=== PATIENT | female | born 2005 | race Caucasian/White ===

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

== ENCOUNTER 2025-02-11 07:06 | Emergency (ER) | payer OTHER ==
[2025-02-11 07:15] VITALS: TEMP 98.1
--- NOTE | 2025-02-11 08:10 | ED ---
General Adult HPI - General Source: patient, family, RN notes reviewed, old records reviewed Mode of arrival: ambulatory Limitations: no limitations <Mickey Steward - Last Filed: 02/11/25 10:53> <Craig Aguilar - Last Filed: 02/11/25 15:48> - General Chief complaint: Headache Stated complaint: Headache Time Seen by Provider: 02/11/25 07:07 - History of Present Illness Initial comments: 19-year-old female presenting with complaints of headache for the past week. Reports 1 week ago she had a headache that she describes as the worst headache of her life, 10 out of 10 pain and states the pain was somewhat sharp and constant and felt a predominantly streaking over the top of her skull, above her eyebrows, and behind her jaw. Reports this headache would last for approximately 2 hours and then subside for about the same time before coming back. States it was like this for about 6 days and yesterday she only had 1 headache and then for the majority of the day was symptom-free. Reports she woke up this morning and the headache had returned so she decided to come to the ER for further evaluation. Denies during this time any neurologic abnormalities including weakness or paresthesias or drooping of the face. Denies any history of polycystic kidney disease or bleeding disorders. Denies any history of migraines, admits to migraines in her mother though. Denies any other symptoms outside of the headaches. (Mickey Steward) - Related Data Home Medications Medication Instructions Recorded Confirmed No Known Home Medications 06/17/17 06/17/17 Allergies Allergy/AdvReac Type Severity Reaction Status Date / Time No Known Allergies Allergy Verified 02/11/25 07:15 Review of Systems ROS Other: All systems not noted in ROS Statement are negative. <Mickey Steward - Last Filed: 02/11/25 10:53> ROS Other: All systems not noted in ROS Statement are negative. <Craig Aguilar - Last Filed: 02/11/25 15:48> ROS Statement: Those systems with pertinent positive or pertinent negative responses have been documented in the HPI. Past Medical History Past Medical History: No Reported History Additional Past Medical History / Comment(s): Eczema History of Any Multi-Drug Resistant Organisms: MRSA Date of last positivie culture/infection: 08/12/17 MDRO Source:: chest Past Surgical History: No Surgical Hx Reported Past Psychological History: No Psychological Hx Reported Smoking Status: Vaper Past Alcohol Use History: None Reported Past Drug Use History: None Reported <Mickey Steward - Last Filed: 02/11/25 10:53> General Exam Limitations: no limitations <Mickey Steward - Last Filed: 02/11/25 10:53> - General Exam Comments Initial Comments: GENERAL: In no apparent distress at the time of examination. Pleasant and cooperative. Morbidly obese. HEENT: Head is atraumatic, normocephalic. Pupils are equal, round, and reactive to light. Sclerae anicteric. Conjunctivae are clear. Mucus membranes of the mouth are moist. Neck is supple. RESPIRATORY: Clear to auscultation. No wheezes, rales, or rhonchi. No use of accessory muscles. Patient maintaining oxygen saturation greater than 92%. No chest wall tenderness is noted on palpation or with deep breathing. CARDIOVASCULAR: Regular rate and rhythm. S1 and S2 noted. No systolic or diastolic murmur auscultated. No JVD noted. No S3 or S4 noted. GASTROINTESTINAL: No distention noted. Abdomen soft and round. Normal active bowel sounds auscultated x 4 quadrants. No pain or tenderness noted upon palpation. NEUROLOGIC: Cranial nerves II-XII intact. PSYCHIATRIC: Awake, alert, and oriented X 3. Appropriate affect. Intact judgement and insight. (Mickey Steward) Course Vital Signs 02/11/25 02/11/25 07:13 10:22 Temperature 98.1 F 98.1 F Pulse Rate 95 75 Respiratory 18 20 Rate Blood Pressure 132/88 101/69 O2 Sat by Pulse 98 99 Oximetry Medical Decision Making - Lab Data Result diagrams: 02/11/25 08:02 02/11/25 08:02 <Mickey Steward - Last Filed: 02/11/25 10:53> - Lab Data Result diagrams: 02/11/25 08:02 02/11/25 08:02 <Craig Aguilar - Last Filed: 02/11/25 15:48> - Medical Decision Making Was pt. sent in by a medical professional or institution (, PA, CLINICAL COORDINATOR, urgent care, hospital, or senior care...) When possible be specific @ -No Did you speak to anyone other than the patient for history (EMS, parent, family, police, friend...)? What history was obtained from this source @ -Yes, family. Did you review nursing and triage notes (agree or disagree)? Why? @ -I reviewed and agree with nursing and triage notes Were old charts reviewed (outside hosp., previous admission, EMS record, old EKG, old radiological studies, urgent care reports/EKG's, senior care records)? Report findings @ -No old charts were reviewed Differential Diagnosis? @ -Differential Headache: Migraine, tension, cluster, carbon monoxide, central venous thrombosis, pension karma temporal arteritis, acute closure glaucoma, intercranial hemorrhage, mastoiditis, sinusitis, head injury, this is not meant to be an all-inclusive list. EKG interpreted by me (3pts min.). @ -As above X-rays interpreted by me (1pt min.). @ -None done CT interpreted by me (1pt min.). @ -CT head without contrast shows no acute intracranial process, no midline shift, no masses, and no hemorrhage this was interpreted by me. U/S interpreted by me (1pt. min.). @ -None done What testing was considered but not performed or refused? (CT, X-rays, U/S, labs)? Why? @ -None What meds were considered but not given or refused? Why? @ -None Did you discuss the management of the patient with other professionals (professionals i.e. , PA, CLINICAL COORDINATOR, lab, RT, psych nurse, social media coordinator, grocery store manager, teacher, operational intelligence officer, assistant case manager)? Give summary @ -No Was smoking cessation discussed for >3mins.? @ -No Was critical care preformed (if so, how long)? @ -No Were there social determinants of health that impacted care today? How? (Homelessness, low income, unemployed, alcoholism, drug addiction, transportation, low edu. Level, literacy, decrease access to med. care, residential, rehab)? @ -No Was there de-escalation of care discussed even if they declined (Discuss DNR or withdrawal of care, Hospice)? DNR status @ -No What co-morbidities impacted this encounter? (DM, HTN, Smoking, COPD, CAD, C ancer, CVA, ARF, Chemo, Hep., AIDS, mental health diagnosis, sleep apnea, morbid obesity)? @ -None Was patient admitted / discharged? Hospital course, mention meds given and route, prescriptions, significant lab abnormalities, going to OR and other pertinent info. @ -Discharged, this is a 19-year-old female presenting with complaints of central midline headaches for the last week. Stated the initial headache was the worst of her life, 10 out of 10 pain and lasted for about 2 hours, reports that the headaches usually last for couple hours then go away for the same amount of time and then eventually come back. Reports yesterday she was more or less headache free for the whole day and thought that her symptoms had resolved, but when the headaches returned this morning she decided come to the ER for further evaluation. While here she received CBC which was within normal limits as well as CT head without contrast which showed no acute intracranial process, no masses, no intracranial bleeding, no midline shift. Patient also received Benadryl, Reglan, and Toradol while here with resolution of her symptoms. At this time patient was deemed ready for discharge. Patient is vies to follow-up with her PCP in 1 to 2 days. Undiagnosed new problem with uncertain prognosis? @ -No Drug Therapy requiring intensive monitoring for toxicity (Heparin, Nitro, Insulin, Cardizem)? @ -No Were any procedures done? @ -No Diagnosis/symptom? @ -Headache Acute, or Chronic, or Acute on Chronic? @ -Acute Uncomplicated (without systemic symptoms) or Complicated (systemic symptoms)? @ -Default Side effects of treatment? @ -No Exacerbation, Progression, or Severe Exacerbation? @ -No Poses a threat to life or bodily function? How? (Chest pain, [place], [place], pneumonia, PE, COPD, DKA, ARF, appy, cholecystitis, CVA, Diverticulitis, Homicidal, Suicidal, threat to staff... and all critical care pts) @ -No (Mickey Steward) I personally saw the patient and performed the critical portion of the service. I discussed the patient care with the resident. I directed management, care planning and final disposition of the patient. This includes, but not limited to, review of all lab work, radiological studies, EKG's, consultations, vital signs, and nursing notes. EKG interpreted by me (3pts min.) @As above X-Rays interpreted by me (1 pt min.) @None CT interpreted by me ( 1pt min.) @CT brain shows no acute processes U/S interpreted by me (1 pt min.) @None Critical care time of 0 minutes excluding separately billable procedures was spent in conjunction with critical care activities provided by the Resident and Attending simultaneously. I was present during no procedures for all critical portions of the procedure and as immediately available to furnish service during the entire procedure. (Craig Aguilar) - Lab Data Lab Results 02/11/25 02/11/25 Range/Units 08:02 08:02 WBC 10.92 H (4.50-10.00) 10*3/uL RBC 4.46 (4.10-5.20) 10*6/uL Hgb 12.3 (12.0-15.0) g/dL Hct 37.1 L (37.2-46.3) % MCV 83.2 (80.0-97.0) fL MCH 27.6 (27.0-32.0) pg MCHC 33.2 (32.0-37.0) g/dL Plt Count 308 (140-440) 10*3/uL MPV 10.5 (9.5-12.2) fL Immature Gran % (Auto) 0.5 % Neutrophils % 70.4 % Lymphocytes % 18.0 % Monocytes % 6.1 % Eosinophils % 4.4 % Basophils % 0.6 % Immature Gran # 0.05 H (0.00-0.04) 10*3/uL Neutrophils # 7.68 (1.80-7.70) 10*3/uL Lymphocytes # 1.97 (0.90-5.00) 10*3/uL Monocytes # 0.67 (0.20-1.00) 10*3/uL Eosinophils # 0.48 H (0.04-0.35) 10*3/uL Basophils # 0.07 (0.00-0.10) 10*3/uL Sodium 138 (137-145) mmol/L Potassium 4.0 (3.5-5.1) mmol/L Chloride 107 (98-107) mmol/L Carbon Dioxide 23 (22-30) mmol/L Anion Gap 8 mmol/L BUN 8 (7-17) mg/dL Creatinine 0.61 (0.52-1.04) mg/dL Est GFR (CKD-EPI)AfAm >90 (>60 ml/min/1.73 sqM) Est GFR (CKD-EPI)NonAf >90 (>60 ml/min/1.73 sqM) Glucose 101 H (74-99) mg/dL Calcium 9.2 (8.4-10.2) mg/dL Total Bilirubin 0.4 (0.2-1.3) mg/dL AST 22 (14-36) U/L ALT 27 (4-34) U/L Alkaline Phosphatase 83 (38-126) U/L Total Protein 7.4 (6.3-8.2) g/dL Albumin 3.9 (3.5-5.0) g/dL HCG, Qual Not Detected Disposition Is patient prescribed a controlled substance at d/c from ED?: No <Mickey Steward - Last Filed: 02/11/25 10:53> <Craig Aguilar - Last Filed: 02/11/25 15:48> Clinical Impression: Headache Disposition: HOME SELF-CARE Instructions (If sedation given, give patient instructions): Acute Headache (ED) Referrals: Jaswinder Teran, [facility] [REFERRING] - 1-2 days
[2025-02-11] MEDS: diphenhydrAMINE 50 MG/ML 1 ML VIAL IVP STA (08:20)
[2025-02-11] MEDS: KETOROLAC 15 MG/ML 1 ML VIAL IVP STA (08:20)
[2025-02-11] MEDS: METOCLOPRAMIDE 5 MG/ML 2 ML VIAL IVP STA (08:21)
[2025-02-11 08:35] LABS: Basophils # (A) 0.07 10*3/uL (0.00-0.10); Basophils % (A) 0.6 %; Eosinophils # (A) 0.48 10*3/uL (0.04-0.35); Eosinophils % (A) 4.4 %; HCT 37.1 % (37.2-46.3); HGB 12.3 g/dL (12.0-15.0); Lymphocytes # (A) 1.97 10*3/uL (0.90-5.00); MCH 27.6 pg (27.0-32.0); MCHC 33.2 g/dL (32.0-37.0); MCV 83.2 fL (80.0-97.0); Mean Platelet Volume 10.5 fL (9.5-12.2); Monocytes # (A) 0.67 10*3/uL (0.20-1.00); Monocytes % (A) 6.1 %; Neutrophils # (A) 7.68 10*3/uL (1.80-7.70); Neutrophils % (A) 70.4 %; Platelet Count 308 10*3/uL (140-440); RBC 4.46 10*6/uL (4.10-5.20); RDW 13.5 % (11.5-14.5); WBC 10.92 10*3/uL (4.50-10.00)
[2025-02-11] MEDS: SODIUM CHLORIDE 0.9% 1,000 ML IV ONE (08:50)
[2025-02-11 08:52] LABS: ALT 27 U/L (4-34); AST 22 U/L (14-36); African American GFR (CKD) >90 (>60 ml/min/1.73 sqM); Albumin 3.9 g/dL (3.5-5.0); Alkaline Phosphatase 83 U/L (38-126); Anion Gap 8 mmol/L; Blood Urea Nitrogen 8 mg/dL (7-17); Calcium 9.2 mg/dL (8.4-10.2); Carbon Dioxide 23 mmol/L (22-30); Chloride 107 mmol/L (98-107); Glucose 101 mg/dL (74-99); Non-African American GFR(CKD) >90 (>60 ml/min/1.73 sqM); Sodium 138 mmol/L (137-145); Total Bilirubin 0.4 mg/dL (0.2-1.3); Total Protein 7.4 g/dL (6.3-8.2)
[2025-02-11 09:02] LABS: HCG,Qualitative Serum Not Detected
--- NOTE | 2025-02-11 09:54 | CT ---
EXAMINATION TYPE: CT brain wo con DATE OF EXAM: 02/11/2025 COMPARISON: None CLINICAL INDICATION: Female, 19 years old with history of Headache; [facility], [place] TECHNIQUE: CT of the brain performed without contrast with sagittal and coronal reformats. CT DLP: 1097.[address] CTDI: mGy Automated exposure control for dose reduction was used. FINDINGS: There is no acute intracranial hemorrhage, mass effect, or midline shift identified. The ventricles and sulci are within normal limits in size. The globes are intact and the visualized sinuses are manas ar. IMPRESSION: No acute intracranial hemorrhage, mass effect, or midline shift is seen. [facility], , 02/11/2025 9:52 AM
[2025-02-11 10:24] VITALS: BP 101/69; PULSE 75; RESP 20
== END 2025-02-11 10:22 | disposition home or self-care (01) ==
LOC: EC 07:06
DX: R51.9 Headache, unspecified (principal); F17.290 Nicotine dependence, other tobacco product, uncomplicated
CPT/HCPCS: 96375; 99284; 96374; 96361; 36415; 80053; 85025; 84703; 70450; J1200; J2765; J1885